=== PATIENT | male | born 1945 | race Caucasian/White ===

== ENCOUNTER 2018-08-16 10:28 | Outpatient (CLI) | payer OTHER | END 2018-08-16 10:57 | disposition home or self-care (01) | LOC: LAB 10:28 | DX: M51.36 Other intervertebral disc degeneration, lumbar region (principal); M99.43 Connective tissue stenosis of neural canal of lumbar region; Z01.818 Encounter for other preprocedural examination; M99.33 Osseous stenosis of neural canal of lumbar region ==

== ENCOUNTER 2018-09-17 08:30 | Day surgery (SDC) | payer OTHER ==
[~2018-09-17 08:30] MED LIST: ALDACTONE50 MG PO; INDERAL LA80 MG PO; SYNTHROID100 MCG PO; VASERETIC 10-21 EACH PO; ZOCOR20 MG PO
== END 2018-09-17 16:25 | disposition home or self-care (01) ==
LOC: CIR.AMB 08:30
DX: M99.73 Connective tissue and disc stenosis of intervertebral foramina of lumbar region (principal); M51.36 Other intervertebral disc degeneration, lumbar region; M46.96 Unspecified inflammatory spondylopathy, lumbar region; M48.07 Spinal stenosis, lumbosacral region; M54.5 Low back pain